=== PATIENT | male | born 1965 | race Caucasian/White ===

== ENCOUNTER 2017-06-23 10:23 | Emergency (ER) | payer OTHER ==
[~2017-06-23] VITALS: Ht 177.8 cm; Wt 90.7 kg
--- NOTE | ~2017-06-23 | EXE ---
[facility] [employer] [place] [address] STRESS ECHOCARDIOGRAM Name: LAURIE GRANDE Room #: DEP [facility]ena[facility] [id number] Admission: 06/23/17 Attend Phys: Discharge: 06/23/17 Date of : 67 Date of Service: 06/23/17 1611 Report #: [id number] THIS REPORT FOR: //name// APPROVED REPORT Exam: Stress Echocardiogram Indication: Chest pain Patient Location: ER Stress Nurse: Bhumika Barbour RN Room #: 11 Status: routine Ht: 5 ft 10 in HR: 70 bpm BP: 143/87 mmHg Rhythm: NSR Medical History Allergies: NKDA Cardiac Risk Factors: HTN Procedure The patient underwent an Exercise Stress Test using the [employer] Protocol. Blood pressure, heart rate, and EKG were monitored. An Echocardiogram was performed by wireless technician in four stages in quad fashion. At peak stress, four selected images were obtained and placed side by side with resting images for comparison. Stress Test Details Stress Test: Exercise stress testing was performed using a Taco protocol. HR Resting HR: 70 bpm Max Heart Rate (APMHR): 169 bpm Max HR Achieved: 171 bpm Target HR (85% APMHR): 143 bpm % of APMHR: 101 Recovery HR: 96 bpm HR response to stress: Normal HR response to stress BP Resting BP: 143/87 mmHg Max BP: 164/84 mmHg Recovery BP: 134/88 mmHg ECG Resting ECG: Sinus Rhythm, normal EKG Stress ECG: Sinus Rhythm, NSSTT changes [facility] [address] [place] [address] STRESS ECHOCARDIOGRAM Name: LAURIE GRANDE [facility] [id number] Admission: 06/23/17 Attend Phys: Discharge: 06/23/17 Date of : 67 Date of Service: 06/23/171610 Report #: [id number] Pre-Stress Echo The resting Echocardiogram showed normal left ventricular contractility with an estimated Ejection Fraction of about 55-60%. Trace MR Post-Stress Echo The stress Echocardiogram showed normal left ventricular contractility with an estimated Ejection Fraction of about 65-70%. Conclusion Clinical Response: Non-ischemic Exercise Capacity: Superior Stress ECG Response: Non-ischemic Stress Echo Images: Non-ischemic Other Information Study Quality: Adequate <ELECTRONICALLY SIGNED> By: Seb Sandoval MD, FACC 06/23/171610 10 10 Seb Sandoval MD, FACC /INF
--- NOTE | ~2017-06-23 | EKG ---
[address] [place] [address] ELECTROCARDIOGRAM REPORT Name: LAURIE GRANDE Room #: DEP [facility]ENTERJese[facility] [id number] Admission: 06/23/17 Attend Phys: Discharge: 06/23/17 Date of : 67 Report #: [id number] THIS REPORT FOR: //name// [facility] ED Test Date: 2017-06-23 Test Time: 10:37:34 Pat Name: LAURIE GRANDE Department: Room: Gender: [employer] C[employer] Developer[facility] 1965 Requested By: Abrahan Nino Order Number: [id number] MD: Claudio Castro Measurements Intervals [place] Rate: 65 P: 10 HI: 153 QRS: 53 QRSD: 93 T: 32 QT: 425 QTc: 442 Interpretive Statements Sinus rhythm No significant abnormality Compared to ECG 11/15/2009 12:23:49 No significant change was found Electronically Signed On 06-24-2017 10:38:55 CDT by Claudio Castro [email or web address] <ELECTRONICALLY SIGNED> By: Claudio Castro MD, [facility] 06/24/17 1038 [facility] Claudio Castro MD, FACC /EPI
[~2017-06-23 10:23] MED LIST: BENADRYL25 MG PO; BYSTOLIC 5 MG5 M1 PO; FISH OIL500 M1 PO; IBUPROFEN 200200 M1 PO; PREVACID30 M1 PO; ZYRTEC10 M1 PO
[2017-06-23] MEDS ORDERED: BYSTOLIC 5 MG5 M1 PO (10:26)
[2017-06-23] MEDS ORDERED: PROPRANOLOL 1010 MG PO (10:27)
[2017-06-23 10:43] LABS: BASOPHILS 0.5 % (0.0-2.0); EOSINOPHILS 0.5 % (0.0-3.0); HEMATOCRIT 46.9 % (42.0-52.0); HEMOGLOBIN 16.4 gm/dL (14.0-18.0); LYMPHOCYTES 27.6 % (24.0-44.0); MCH 30.4 pg (26.0-34.0); MCV 86.8 fL (80.0-100.0); MONOCYTES 6.5 % (1.0-8.0); PLATELET COUNT 194 thou/uL (150-400); POLYS 64.9 % (36.0-66.0); RBC 5.41 mil/uL (4.50-6.00); RDW 13.1 % (10.5-14.5); WBC 6.1 thou/uL (4.0-11.0)
[2017-06-23 10:46] LABS: MANUAL DIFF NO
[2017-06-23 10:58] LABS: ANION GAP 10 mmol/L (7-16); BUN 16 mg/dL (7-18); CALCIUM 9.4 mg/dL (8.5-10.1); CHLORIDE 101 mmol/L (98-107); CO2 28 mmol/L (21-32); GLUCOSE 90 mg/dL (74-106); POTASSIUM 4.3 mmol/L (3.5-5.1); SODIUM 139 mmol/L (136-145)
[2017-06-23 11:13] LABS: NT-PRO BRAIN NAT PEPTIDE 40 pg/mL (<300); TROPONIN-I < 0.04 ng/mL (<0.04-0.07)
== END 2017-06-23 16:05 | disposition home or self-care (01) ==
LOC: ER 10:23
PROVIDERS: Emergency Medicine
DX: R07.89 Other chest pain (principal); I10 Essential (primary) hypertension; F10.99 Alcohol use, unspecified with unspecified alcohol-induced disorder